=== PATIENT | male | born 1980 | race Caucasian/White ===

== ENCOUNTER → 2017-08-23 09:21 | Outpatient (CLI) | payer MEDICARE, MEDICAID, SELFPAY ==
[2017-08-23 11:06] LABS: Thyroid Stimulating Hormone 3.17 uIU/mL (0.47-4.68)
[2017-08-25 15:07] LABS: Thyroglobulin Antibodies < 1 IU/mL (< 2); Thyroglobulin Level < 0.1 ng/mL (2.8-40.9)
== END ==
PROVIDERS: Visit Provider Internal Medicine Endocrinology, Diabetes & Metabolism
DX: E89.0 Postprocedural hypothyroidism (principal); C73 Malignant neoplasm of thyroid gland
CPT/HCPCS: 36415; 84432; 84443; 86800

== ENCOUNTER → 2017-09-02 09:08 | Outpatient (CLI) | payer MEDICARE, MEDICAID, SELFPAY ==
[2017-09-02 09:57] LABS: Iron 119 ug/dL (49-181)
[2017-09-02 09:58] LABS: Cholesterol 149 mg/dL (140-199); HDL Cholesterol 39 mg/dL (40-60); LDL Cholesterol Calculated 81 mg/dL (<100); Triglycerides 147 mg/dL (35-150); VLDL Cholesterol Calculated 29 mg/dL (2-30)
[2017-09-02 10:30] LABS: Ferritin 48.5 ng/mL (17.9-464)
[2017-09-09 10:39] LABS: HIV-1/2 confirmation Detected (Not detected)
== END ==
PROVIDERS: Visit Provider Nurse Practitioner Family
DX: R79.0 Abnormal level of blood mineral (principal); B20 Human immunodeficiency virus [HIV] disease
CPT/HCPCS: 36415; 80061; 82728; 83540; 87535

== ENCOUNTER → 2018-02-17 15:05 | Outpatient (CLI) | payer MEDICARE, MEDICAID, SELFPAY ==
[2018-02-17 16:22] LABS: Glucose 93 mg/dL (70-100)
[2018-02-17 16:53] LABS: Thyroid Stimulating Hormone 5.98 uIU/mL (0.47-4.68)
== END ==
PROVIDERS: Visit Provider Internal Medicine Endocrinology, Diabetes & Metabolism
DX: E89.0 Postprocedural hypothyroidism (principal); R63.1 Polydipsia
CPT/HCPCS: 36415; 82947; 84443

== ENCOUNTER → 2019-06-05 09:36 | Outpatient (CLI) | payer MEDICARE, SELFPAY ==
[2019-06-05 11:28] LABS: Glucose 94 mg/dL (70-100)
[2019-06-05 12:02] LABS: Thyroid Stimulating Hormone 8.01 uIU/mL (0.47-4.68)
== END ==
PROVIDERS: Referring Provider Internal Medicine Endocrinology, Diabetes & Metabolism; Visit Provider Internal Medicine Endocrinology, Diabetes & Metabolism
DX: E89.0 Postprocedural hypothyroidism (principal); R63.1 Polydipsia
CPT/HCPCS: 82947; 84443

== ENCOUNTER → 2019-06-05 10:06 | Outpatient (CLI) | payer MEDICARE, SELFPAY ==
[2019-06-05 10:25] LABS: Bacteria Urine None Seen; RBC Urine None Seen (0-5/HPF)
[2019-06-05 11:03] LABS: Add Manual Diff / Slide Review NO; Basophils Absolute Auto 0 /uL (0-100); Basophils Percent Auto 0.5 % (0-2); Eosinophils Absolute Auto 100 /uL (0-450); Eosinophils Percent Auto 1.3 % (2-4); Hematocrit 38.1 % (41-53); Hemoglobin 13.3 g/dL (13.5-17.5); Lymphocytes Absolute Auto 1000 /uL (1100-4500); Lymphocytes Percent Auto 21.1 % (25-40); Mean Corpuscular HGB Conc 34.9 % (30-36); Mean Corpuscular Hemoglobin 33.4 PG (26-34); Mean Corpuscular Volume 95.8 fL (80-100); Monocytes Absolute Auto 400 /uL (0-900); Neutrophils Absolute Auto 3400 /uL (1500-7000); Neutrophils Percent Auto 68.1 % (50-75); Platelet Count 286 X10^3/uL (150-400); Red Blood Cell Count 3.98 X10^6/uL (4.5-5.9); Red Cell Distribution Width 12.5 % (11.6-14.8); White Blood Cell Count 4.9 X10^3/uL (4.5-11.0)
[2019-06-05 11:13] LABS: Appearance Urine UA CLEAR; Bilirubin Urine UA NEGATIVE (NEGATIVE); Color Urine UA YELLOW; Glucose Urine UA NEGATIVE (Negative); Ketones Urine UA NEGATIVE (NEGATIVE); Leukocyte Esterase Urine UA NEGATIVE (NEGATIVE); Nitrite Urine UA NEGATIVE (Negative); Occult Blood Urine UA NEGATIVE (Negative); Protein Urine UA NEGATIVE (Negative); Specific Gravity Urine UA <=1.005 (1.000-1.035); Urobilinogen Urine UA 0.2 E.U./dL (0.2)
[2019-06-05 11:18] LABS: Alanine Aminotransferase 16 IU/L (<50); Albumin 4.5 g/dL (3.5-5.0); Albumin Globulin Ratio 1.6 (1.0-2.8); Alkaline Phosphatase 66 U/L (38-126); Aspartate Aminotransferase 24 IU/L (17-59); BUN Creatinine Ratio 11.9 (6-22); Bilirubin Total 0.7 mg/dL (0.2-1.3); Blood Urea Nitrogen 15 mg/dL (9-20); Calcium 9.1 mg/dL (8.4-10.2); Carbon Dioxide 28 mmol/L (22-32); Chloride 102 mmol/L (98-107); Estimated Glomerular Filt Rate > 60.0 mL/min (>60); Globulin 2.9 g/dL (1.7-4.1); Glucose 93 mg/dL (70-100); HEMOLYSIS < 15 (0-50); Sodium 139 mmol/L (137-145); Total Protein 7.4 g/dL (6.3-8.2)
[2019-06-05 11:29] LABS: Squamous Epithelial Cell Urine 0-1 /HPF (0-5/HPF); WBC Urine 0-1/HPF (0-5/HPF)
[2019-06-05 11:30] LABS: Culture Indicated Urine Cult Not Indicated
[2019-06-06 04:36] LABS: RPR Screen Non Reactive (Non Reactive)
== END ==
DX: Z21 Asymptomatic human immunodeficiency virus [HIV] infection status (principal); E89.0 Postprocedural hypothyroidism; R63.1 Polydipsia
CPT/HCPCS: 36415; 80053; 81001; 82947; 84443; 85025; 86592

== ENCOUNTER → 2019-06-26 09:59 | Outpatient (CLI) | payer MEDICARE, SELFPAY | PROVIDERS: PCP Internal Medicine | DX: Z21 Asymptomatic human immunodeficiency virus [HIV] infection status (principal) | CPT/HCPCS: 87536 ==